=== PATIENT | female | born 1955 | race Caucasian/White ===

== ENCOUNTER 2017-04-15 17:39 | Emergency (ER) | payer SELFPAY ==
[~2017-04-15] VITALS: Ht 157.5 cm; Wt 51.0 kg
[2017-04-15 18:19] LABS: HEMATOCRIT 45.1 % (36.0-46.0); MCH 30.1 PG (29.0-34.0); MCHC 33.5 G/DL (30.0-36.0); MCV 89.8 FL (83-99); MEAN PLAT.VOLUME 10.4 uM^3 (9.5-12.4); PLATELET COUNT 192 K/uL (156-360); RBC DIS.WIDTH-CV 12.8 % (11.8-14.6); RED BLOOD COUNT 5.02 M/uL (3.80-5.20); WHITE BLOOD COUNT 13.9 K/uL (4.1-10.2)
[2017-04-15 18:26] LABS: ADD MIUA? YES; BILIRUBIN NEGATIVE; BLOOD SMALL; COLOR AMBER ((YELLOW)); GLUCOSE (STRIP) NEGATIVE; KETONES 20; LEUKOCYTES MODERATE; NITRITE NEGATIVE; PROTEIN (STRIP) 30; SPECIFIC GRAVITY 1.025 (1.000-1.030)
[2017-04-15 18:29] LABS: CHLORIDE 107 mEq/L (99-109); POTASSIUM 3.4 mEq/L (3.7-5.4); SODIUM 144 mEq/L (136-147)
[2017-04-15 18:32] LABS: GLUCOSE 124 mg/dL (70-99)
[2017-04-15 18:33] LABS: ANION GAP 14 MEQ/L (2-14)
[2017-04-15 18:34] LABS: TOTAL BILIRUBIN 0.4 mg/dL (0.0-1.0)
[2017-04-15 18:35] LABS: ALKALINE PHOSPHATASE 144 IU/L (3-129); GFR ESTIMATE (CALCULATED) > 59 mL/min/
[2017-04-15 18:36] LABS: UREA NITROGEN (BUN) 16 mg/dL (9-23)
[2017-04-15 18:37] LABS: BACTERIA RARE /HPF; EPITHELIAL CELLS RARE /HPF; HYALINE CASTS 0-5 /LPF; MUCUS 4+ /LPF; RED BLOOD CELLS 0-5 /HPF (0-5); UCUL ADDED? NO; WHITE BLOOD CELLS 0-5 /HPF (0-5)
[2017-04-15 18:59] LABS: LIPASE 11 U/L (1.0-51.0); URIC ACID 8.5 mg/dL (3.1-9.2)
[2017-04-15] MEDS ORDERED: KEFLEX500 MG PO (22:48)
[2017-04-15 23:22] VITALS: BP 103/93
== END 2017-04-15 23:24 | disposition home or self-care (01) ==
LOC: EME 17:39
DX: R10.10 Upper abdominal pain, unspecified (principal); L03.116 Cellulitis of left lower limb; Z90.49 Acquired absence of other specified parts of digestive tract; F17.200 Nicotine dependence, unspecified, uncomplicated
CPT/HCPCS: 74177; 76705; 80053; 81003; 83690; 84550; 85027; 93005; 99281; 99284; J1885; J2405; J7030

== ENCOUNTER 2017-04-17 11:27 | Emergency (ER) | payer SELFPAY ==
[~2017-04-17] VITALS: Ht 154.9 cm; Wt 53.5 kg
[~2017-04-17 11:27] MED LIST: KEFLEX500 MG PO
[2017-04-17 14:26] LABS: HEMATOCRIT 43.3 % (36.0-46.0); MCH 30.1 PG (29.0-34.0); MCHC 33.3 G/DL (30.0-36.0); MCV 90.4 FL (83-99); MEAN PLAT.VOLUME 10.6 uM^3 (9.5-12.4); PLATELET COUNT 186 K/uL (156-360); RBC DIS.WIDTH-CV 12.8 % (11.8-14.6); RBC DIS.WIDTH-SD 41.9 % (39-53); RED BLOOD COUNT 4.79 M/uL (3.80-5.20); WHITE BLOOD COUNT 6.4 K/uL (4.1-10.2)
[2017-04-17] MEDS ORDERED: CLEOCIN300 MG PO (15:33)
[2017-04-17] MEDS ORDERED: NAPROSYN375 MG PO (15:34)
[2017-04-17 16:19] VITALS: BP 119/69
== END 2017-04-17 16:22 | disposition home or self-care (01) ==
LOC: EME 11:27
PROVIDERS: Emergency Medicine
DX: L03.116 Cellulitis of left lower limb (principal); R11.2 Nausea with vomiting, unspecified; T36.4X5A Adverse effect of tetracyclines, initial encounter; Z88.1 Allergy status to other antibiotic agents; F17.200 Nicotine dependence, unspecified, uncomplicated
CPT/HCPCS: 85027; 99281; 99284; J2405

== ENCOUNTER 2017-07-14 19:16 | Emergency (ER) | payer OTHER ==
[~2017-07-14] VITALS: Ht 157.5 cm; Wt 98.1 kg
[~2017-07-14 19:16] MED LIST changes: +CLEOCIN300 MG PO; +NAPROSYN375 MG PO
[2017-07-14 19:37] LABS: EOSINOPHIL (%) 0.6 % (0-5); EOSINOPHIL COUNT 0.1 K/uL (0-0.3); HEMATOCRIT 44.2 % (36.0-46.0); IMMATURE GRANULOCYTE (%) 0.3 % (0.0-0.7); INSTRUMENT ABS NEUTROPHIL CT 9.8 K/uL; LYMPHOCYTE COUNT 0.7 K/uL (1.0-2.8); MCH 30.6 PG (29.0-34.0); MCHC 34.2 G/DL (30.0-36.0); MCV 89.5 FL (83-99); MEAN PLAT.VOLUME 10.2 uM^3 (9.5-12.4); MONOCYTE (%) 6.1 % (3-12); MONOCYTE COUNT 0.7 K/uL (0-0.8); NEUTROPHIL (%) 86.8 % (45-76); NEUTROPHIL COUNT 9.8 K/uL (1.8-6.4); PLATELET COUNT 254 K/uL (156-360); RBC DIS.WIDTH-SD 42.2 % (39-53); RED BLOOD COUNT 4.94 M/uL (3.80-5.20); WHITE BLOOD COUNT 11.3 K/uL (4.1-10.2)
[2017-07-14 19:45] LABS: CHLORIDE 104 mEq/L (99-109); POTASSIUM 3.4 mEq/L (3.7-5.4); SODIUM 142 mEq/L (136-147)
[2017-07-14 19:47] LABS: GLUCOSE 128 mg/dL (70-99)
[2017-07-14 19:49] LABS: ANION GAP 13 MEQ/L (2-14); TOTAL BILIRUBIN 0.5 mg/dL (0.0-1.0)
[2017-07-14 19:51] LABS: ALKALINE PHOSPHATASE 132 IU/L (3-129); GFR ESTIMATE (CALCULATED) > 59 mL/min/
[2017-07-14 19:52] LABS: UREA NITROGEN (BUN) 14 mg/dL (9-23)
[2017-07-14] MEDS ORDERED: PROMETHAZINE HC25 M1 PO (21:52)
[2017-07-14] MEDS ORDERED: PRILOSEC20 MG PO (21:52)
[2017-07-14 22:30] VITALS: BP 155/112
== END 2017-07-14 22:46 | disposition home or self-care (01) ==
LOC: EME 19:16
PROVIDERS: Emergency Medicine
DX: R11.2 Nausea with vomiting, unspecified (principal); R19.7 Diarrhea, unspecified; R10.13 Epigastric pain; J45.909 Unspecified asthma, uncomplicated; F17.200 Nicotine dependence, unspecified, uncomplicated; Z88.2 Allergy status to sulfonamides; Z88.0 Allergy status to penicillin
CPT/HCPCS: 80053; 85025; 99281; 99285; J2405; J7030

== ENCOUNTER 2017-08-14 22:33 | Emergency (ER) | payer OTHER ==
[~2017-08-14] VITALS: Ht 157.5 cm; Wt 54.0 kg
[~2017-08-14 22:33] MED LIST changes: +PRILOSEC20 MG PO; +PROMETHAZINE HC25 M1 PO
[2017-08-15 00:14] LABS: HEMATOCRIT 42.8 % (36.0-46.0); MCH 30.4 PG (29.0-34.0); MCHC 34.3 G/DL (30.0-36.0); MCV 88.6 FL (83-99); MEAN PLAT.VOLUME 10.5 uM^3 (9.5-12.4); PLATELET COUNT 191 K/uL (156-360); RBC DIS.WIDTH-CV 12.5 % (11.8-14.6); RBC DIS.WIDTH-SD 40.4 % (39-53); RED BLOOD COUNT 4.83 M/uL (3.80-5.20); WHITE BLOOD COUNT 7.5 K/uL (4.1-10.2)
[2017-08-15 00:23] LABS: CHLORIDE 104 mEq/L (99-109); POTASSIUM 3.7 mEq/L (3.7-5.4); SODIUM 140 mEq/L (136-147)
[2017-08-15 00:25] LABS: GLUCOSE 111 mg/dL (70-99)
[2017-08-15 00:26] LABS: ANION GAP 11 MEQ/L (2-14)
[2017-08-15 00:29] LABS: GFR ESTIMATE (CALCULATED) > 59 mL/min/
[2017-08-15 00:30] LABS: UREA NITROGEN (BUN) 16 mg/dL (9-23)
[2017-08-15] MEDS ORDERED: CLEOCIN300 MG PO (01:59)
[2017-08-15] MEDS ORDERED: ZOFRAN4 MG PO (03:09)
[2017-08-15 03:25] VITALS: BP 122/78
== END 2017-08-15 03:43 | disposition home or self-care (01) ==
LOC: EME 22:33
PROVIDERS: Emergency Medicine
DX: L03.116 Cellulitis of left lower limb (principal); R11.2 Nausea with vomiting, unspecified; R19.7 Diarrhea, unspecified; R51 Headache; M54.9 Dorsalgia, unspecified; Z90.49 Acquired absence of other specified parts of digestive tract; Z88.0 Allergy status to penicillin; Z88.1 Allergy status to other antibiotic agents; Z88.2 Allergy status to sulfonamides; F17.200 Nicotine dependence, unspecified, uncomplicated; Z71.6 Tobacco abuse counseling
CPT/HCPCS: 76882; 80048; 83605; 85027; 87040; 99281; 99285; J2405; J7030

== ENCOUNTER 2017-10-12 23:49 | Emergency (ER) | payer OTHER ==
[~2017-10-12] VITALS: Ht 157.5 cm; Wt 52.7 kg
[~2017-10-12 23:49] MED LIST changes: +ZOFRAN4 MG PO
[2017-10-13 00:31] LABS: HEMATOCRIT 43.5 % (36.0-46.0); MCH 30.5 PG (29.0-34.0); MCHC 34.5 G/DL (30.0-36.0); MCV 88.6 FL (83-99); PLATELET COUNT 189 K/uL (156-360); RBC DIS.WIDTH-CV 12.9 % (11.8-14.6); RBC DIS.WIDTH-SD 41.2 % (39-53); RED BLOOD COUNT 4.91 M/uL (3.80-5.20); WHITE BLOOD COUNT 14.2 K/uL (4.1-10.2)
[2017-10-13 00:42] LABS: ALBUMIN 4.8 g/dL (3.2-4.8); CHLORIDE 104 mEq/L (99-109); POTASSIUM 3.4 mEq/L (3.7-5.4); SODIUM 139 mEq/L (136-147)
[2017-10-13 00:44] LABS: GLUCOSE 141 mg/dL (70-99); TOTAL PROTEIN 7.3 g/dL (6.4-8.3)
[2017-10-13 00:46] LABS: TOTAL BILIRUBIN 0.7 mg/dL (0.0-1.0)
[2017-10-13 00:48] LABS: ALKALINE PHOSPHATASE 133 IU/L (3-129); CREATININE 0.8 mg/dL (0.6-1.3); GFR ESTIMATE (CALCULATED) > 59 mL/min/
[2017-10-13 00:49] LABS: UREA NITROGEN (BUN) 16 mg/dL (9-23)
[2017-10-13 00:50] LABS: AST (GOT) 21 IU/L (2-34)
[2017-10-13 00:51] LABS: ALT (GPT) 13 IU/L (3-49); LIPASE 13 U/L (1.0-51.0)
[2017-10-13 01:08] LABS: APPEARANCE CLOUDY ((CLEAR)); BILIRUBIN NEGATIVE; BLOOD SMALL; COLOR AMBER ((YELLOW)); GLUCOSE (STRIP) NEGATIVE; KETONES 5; LEUKOCYTES SMALL; NITRITE NEGATIVE; PROTEIN (STRIP) 30; SPECIFIC GRAVITY 1.031 (1.000-1.030); UROBILINOGEN 0.2 MG/DL (0.2-1.0)
[2017-10-13 01:11] LABS: TROP-I INTERPRETATION NEGATIVE; TROPONIN-I < 0.01 ng/mL (0.0-0.30)
[2017-10-13 01:20] LABS: RED BLOOD CELLS 0-5 /HPF (0-5); WHITE BLOOD CELLS 0-5 /HPF (0-5)
[2017-10-13 01:21] LABS: BACTERIA 1+ /HPF; CALCIUM OXALATE CRYSTALS 2+ /HPF; EPITHELIAL CELLS RARE /HPF; HYALINE CASTS RARE /LPF; MUCUS 1+ /LPF; UCUL ADDED? NO
[2017-10-13] MEDS ORDERED: ZOFRAN4 MG PO (04:30)
[2017-10-13] MEDS ORDERED: FIORICET 50-301 EAC1 PO (04:31)
[2017-10-13 05:37] VITALS: BP 119/68
== END 2017-10-13 05:37 | disposition home or self-care (01) ==
LOC: EME → EDBD 23:49 → EME 10-13 05:37
PROVIDERS: Emergency Medicine
DX: K52.9 Noninfective gastroenteritis and colitis, unspecified (principal); K05.10 Chronic gingivitis, plaque induced; E86.0 Dehydration; R51 Headache; L40.9 Psoriasis, unspecified; J45.909 Unspecified asthma, uncomplicated; Z90.49 Acquired absence of other specified parts of digestive tract; F17.200 Nicotine dependence, unspecified, uncomplicated; Z88.2 Allergy status to sulfonamides; Z88.1 Allergy status to other antibiotic agents
CPT/HCPCS: 70450; 74177; 80053; 81003; 83690; 84484; 85027; 93005; 99281; 99285; J1100; J1200; J1885; J2405; J2765; J7030